=== PATIENT | male | born 1975 | race Caucasian/White ===

== ENCOUNTER 2018-12-11 04:57 | Emergency (ER) | payer OTHER ==
--- NOTE | 2018-12-11 05:40 | ED Physician Documentation ---
PD HPI NVD - Stated complaint Stated Complaint: NAUSEA,VOMITING - Chief complaint Chief Complaint: Abd Pain - History obtained from History obtained from: Patient - History of Present Illness Timing - onset: How many days ago (3) Timing - details: Abrupt onset, Waxing and waning Pain level max: 0 Pain level now: 0 Associated symptoms: No: Fever, Abdominal pain Contributing factors: Diabetes Improved by: Other (no ameliorating factors) Worsened by: Eating Similar symptoms before: Has not had sx before Recently seen: Not recently seen - Additonal information Additional information: c/o 3 days of nausea, vomiting, diarrhea. He feels this is related to a diabetic medication he was started on 2.5 months ago with recent increase in dose Review of Systems Constitutional: denies: Fever, Chills, Sweats Cardiac: reports: Reviewed and negative Respiratory: reports: Reviewed and negative GI: reports: Nausea, Vomiting, Diarrhea. denies: Abdominal Pain : denies: Dysuria, Frequency PD PAST MEDICAL HISTORY - Past Medical History Cardiovascular: Hypertension Respiratory: Sleep apnea, CPAP use Neuro: Migraines Endocrine/Autoimmune: Type 2 diabetes, HyPOthyroidism GI: None : None HEENT: None Psych: Depression Musculoskeletal: None Derm: None - Past Surgical History Past Surgical History: Yes General: Hiatal hernia repair - Present Medications Home Medications: Ambulatory Orders Medication Instructions Recorded Confirmed Insulin Glargine,Hum.rec.anlog 80 units DAILY 02/08/13 06/02/14 [Lantus] Insulin Regular Human [NovoLIN R] 5 unit SUBQ ONCE 02/08/13 06/02/14 Levothyroxine Sodium [Synthroid] 125 mcg PO DAILY 02/08/13 06/02/14 Lisinopril 40 mg PO DAILY 02/08/13 06/02/14 Simvastatin 40 mg PO DAILY 02/08/13 06/02/14 glipiZIDE [Glucotrol] 5 mg DAILY 02/08/13 06/02/14 Gabapentin 300 mg ORAL DAILY 06/02/14 06/02/14 Diphenoxylate/Atropine [Lomotil] 1 - 2 each PO QID PRN #10 tablet 12/11/18 Ondansetron Odt [Zofran] 4 mg TL Q6H PRN #10 tablet 12/11/18 Semaglutide [Ozempic] 1 mg SQ 12/11/18 - Allergies Allergies/Adverse Reactions: Allergies Allergy/AdvReac Type Severity Reaction Status Date / Time No Known Drug Allergies Allergy Verified 12/11/18 05:11 - Social History Does the pt smoke?: No Smoking Status: Never smoker Does the pt drink ETOH?: No Does the pt have substance abuse?: No - Immunizations Immunizations are current?: Yes - POLST Patient has POLST: No PD ED PE NORMAL - Vitals Vital signs reviewed: Yes - General General: Alert and oriented X 3, No acute distress, Well developed/nourished - HEENT HEENT: Other (tacky/pasty mucous membranes) - Neck Neck: Supple, no meningeal sign - Cardiac Cardiac: RRR, No murmur - Respiratory Respiratory: No respiratory distress, Clear bilaterally - Abdomen Abdomen: Normal bowel sounds, Soft, Non tender, Non distended - Derm Derm: Normal color, Warm and dry Results - Vitals Vitals: Oxygen O2 Source Room air - Labs Labs: Laboratory Tests 12/11/18 12/11/18 06:10 06:10 WBC 18.0 H RBC 5.50 Hgb 16.2 Hct 48.8 MCV 88.8 MCH 29.5 MCHC 33.3 RDW 14.6 Plt Count 515 H MPV 9.0 Neut # (Auto) 15.4 H Lymph # (Auto) 1.3 L Bee # (Auto) 1.1 H Eos # (Auto) 0.1 Baso # (Auto) 0.1 Absolute Nucleated RBC 0.00 Nucleated RBC % 0.0 Sodium 133 L Potassium 3.8 Chloride 99 L Carbon Dioxide 19 L Anion Gap 15.0 H BUN 14 Creatinine 0.8 Estimated GFR (MDRD) 105 Glucose 223 H Calcium 9.8 Total Bilirubin 0.8 AST 23 ALT 27 Alkaline Phosphatase 103 Total Protein 9.3 H Albumin 4.6 Globulin 4.7 H Albumin/Globulin Ratio 1.0 Lipase 22 PD MEDICAL DECISION MAKING - ED course Complexity details: reviewed results, re-evaluated patient, considered differential, d/w patient ED course: Patient improved after IV fluids, zofran, and lomotil; he is comfortable and has moist mucous membranes on reevaluation. I proposed to patient that his symptoms may be coincident (unrelated) to his new medication, but he is convinced that this is the cause. He says he has a sliding scale for his insulin, and thus it is reasonable for him to discontinue this new diabetic medication and continue with his sliding scale until he can speak with his prescribing physician about replacing the other medication Departure - Departure Disposition: 01 Home, Self Care Clinical Impression: Vomiting, Diarrhea Condition: Good Instructions: ED Vomiting Diarrhea Nonspecific Ad Follow-Up: Mary Cuello MD [Primary Care Provider] - Prescriptions: Diphenoxylate/Atropine [Lomotil] 1 - 2 each PO QID PRN #10 tablet PRN Reason: Diarrhea Ondansetron Odt [Zofran] 4 mg TL Q6H PRN #10 tablet PRN Reason: Nausea / Vomiting Discharge Date/Time: 12/11/18 07:34
[2018-12-11] MEDS ORDERED: ONDANSETRON 4 MG/2 ML VIAL IVP STA (06:03)
[2018-12-11] MEDS ORDERED: SODIUM CHLORIDE 0.9% 1,000 ML IV STA (06:03)
[2018-12-11] MEDS ORDERED: DIPHENOX/ATROPINE 2.5/0.025 MG TABLET PO STA (06:05)
[2018-12-11 06:15] LABS: BASOPHILS # (AUTO) 0.1 10^3/uL (0.0-0.1); BASOPHILS % (AUTO) 0.3 %; EOSINOPHILS # (AUTO) 0.1 10^3/uL (0.0-0.7); EOSINOPHILS % (AUTO) 0.8 %; HGB - HEMOGLOBIN 16.2 g/dL (14.0-18.0); LYMPHOCYTES # (AUTO) 1.3 10^3/uL (1.5-3.5); LYMPHOCYTES % (AUTO) 7.1 %; MEAN CORPUSCULAR HEMOGLOBIN 29.5 pg (27.0-31.0); MEAN CORPUSCULAR HGB CONC 33.3 g/dL (32.0-36.0); MEAN CORPUSCULAR VOLUME 88.8 fL (80.0-94.0); MONOCYTES # (AUTO) 1.1 10^3/uL (0.0-1.0); MONOCYTES % (AUTO) 6.2 %; NEUTROPHILS # (AUTO) 15.4 10^3/uL (1.5-6.6); NEUTROPHILS % (AUTO) 85.6 %; PLT - PLATELET COUNT 515 10^3/uL (130-450); RED CELL DISTRIBUTION WIDTH 14.6 % (12.0-15.0)
[2018-12-11 06:29] LABS: ALBUMIN 4.6 g/dL (3.2-5.5); BILIRUBIN,TOTAL 0.8 mg/dL (0.2-1.0); CALCIUM 9.8 mg/dL (8.5-10.3); CREATININE 0.8 mg/dL (0.6-1.2); TOTAL PROTEIN 9.3 g/dL (6.7-8.2)
[2018-12-11 07:35] VITALS: BP 135/92
== END 2018-12-11 07:34 | disposition home or self-care (01) ==
LOC: ED 04:57
DX: R11.2 Nausea with vomiting, unspecified (principal); R19.7 Diarrhea, unspecified; E11.9 Type 2 diabetes mellitus without complications; Z79.4 Long term (current) use of insulin; I10 Essential (primary) hypertension
CPT/HCPCS: 36415; 80053; 83690; 85025; 96361; 96374; 99283; A9270